=== PATIENT | female | born 1950 | race Caucasian/White ===

== ENCOUNTER → 2018-04-12 | Outpatient (CLI) | payer MEDICARE ==
--- NOTE | 2018-04-13 10:22 | MM ---
Reason for exam: screening (asymptomatic). Last mammogram was performed 1 year and 7 months ago. History: Patient is postmenopausal, has history of breast cancer at age 56, previous chest radiation therapy, and is nulliparous. Excisional biopsy of the left breast, August 14, 2007. Malignant left mammotome panel of the left breast, June 02, 2007. Lumpectomy of the left breast. Radiation therapy of the left breast. Took hormonal contraceptives for 5 years beginning at age 21. Taking antineoplastic for 4 years. Taking other hormone for 8 years. Physical Findings: A clinical breast exam by your physician is recommended on an annual basis and results should be correlated with mammographic findings. MG Screening Mammo w CAD Bilateral CC and MLO view(s) were taken. Prior study comparison: August 30, 2016, bilateral MG diagnostic mammo w CAD [facility]. April 30, 2015, bilateral MG diagnostic mammo w CAD [facility]. There are scattered fibroglandular densities. Benign appearing bilateral calcifications. No suspicious abnormality. Post therapy change on the left breast. ASSESSMENT: Benign, BI-RAD 2 RECOMMENDATION: Routine screening mammogram of both breasts in 1 year.
== END | disposition home or self-care (01) ==
LOC: RADMAMWWP 07:29
PROVIDERS: ATTEND Family Medicine
DX: Z12.31 Encounter for screening mammogram for malignant neoplasm of breast (principal)
CPT/HCPCS: 77067

== ENCOUNTER → 2018-11-09 | Outpatient (CLI) | payer MEDICARE | END | disposition home or self-care (01) | LOC: RADUSWWP 10:09 | PROVIDERS: ATTEND Family Medicine | DX: R25.2 Cramp and spasm (principal) | CPT/HCPCS: 93923 ==

== ENCOUNTER → 2019-08-10 | Outpatient (CLI) | payer MEDICARE ==
--- NOTE | 2019-08-10 13:50 | MM ---
Reason for exam: screening (asymptomatic). Last mammogram was performed 1 year and 4 months ago. History: Patient is postmenopausal, has history of breast cancer at age 56, previous chest radiation therapy, and is nulliparous. Excisional biopsy of the left breast, August 14, 2007. Malignant left mammotome panel of the left breast, June 02, 2007. Lumpectomy of the left breast. Radiation therapy of the left breast. Took hormonal contraceptives for 5 years beginning at age 21. Taking antineoplastic for 4 years. Taking other hormone for 8 years. Physical Findings: A clinical breast exam by your physician is recommended on an annual basis and results should be correlated with mammographic findings. MG Screening Mammo w CAD Bilateral CC and MLO view(s) were taken. Prior study comparison: April 12, 2018, bilateral MG screening mammo w CAD. August 30, 2016, bilateral MG diagnostic mammo w CAD [facility]. The breast tissue is heterogeneously dense. This may lower the sensitivity of mammography. Benign appearing bilateral calcifications. Post therapy change on the left. ASSESSMENT: Benign, BI-RAD 2 RECOMMENDATION: Routine screening mammogram of both breasts in 1 year.
== END | disposition home or self-care (01) ==
LOC: RADMAMWWP 09:02
PROVIDERS: ATTEND Family Medicine
DX: Z12.31 Encounter for screening mammogram for malignant neoplasm of breast (principal)
CPT/HCPCS: 77067

== ENCOUNTER → 2022-02-05 | Outpatient (CLI) | payer MEDICARE ==
--- NOTE | 2022-02-09 12:55 | MM ---
Reason for Exam: Screening (asymptomatic). Last mammogram was performed 2 year(s) and 6 month(s) ago. Patient History: Menarche at age 14. Patient has no children. Left ovary removed at age 51. Right ovary removed at age 51. Hysterectomy at age 51. Postmenopausal. Breast cancer, left, age 56. Previous chest radiation therapy. Hormonal Contraceptives for 5 years from age 21 until age 26. Lumpectomy on the Left side. 08/14/2007, Excisional Biopsy on the Left side. 06/02/2007, Malignant Core Biopsy on the left side. Radiation Therapy, left. Film Views: Bilateral CC views were taken. Bilateral MLO views were taken. Prior Study Comparison: 08/30/2016 Bilateral Diagnostic Mammogram, [facility]. 04/12/2018 Bilateral Screening Mammogram, [facility]. 08/10/2019 Bilateral Screening Mammogram, [facility]. Tissue Density: The breast tissue is heterogeneously dense. This may lower the sensitivity of mammography. Findings: Analyzed By CAD. No significant changes when compared with prior studies. Chronic nodularity in the right breast. Post surgical and post therapy changes in the left breast. Overall Assessment: Benign, BI-RAD 2 Management: Screening Mammogram of both breasts in 1 year.
== END | disposition home or self-care (01) ==
LOC: RADMAMWWP 09:55
PROVIDERS: ATTEND Family Medicine
DX: Z12.31 Encounter for screening mammogram for malignant neoplasm of breast (principal); Z78.0 Asymptomatic menopausal state; Z85.3 Personal history of malignant neoplasm of breast; Z92.3 Personal history of irradiation; Z90.721 Acquired absence of ovaries, unilateral; Z90.710 Acquired absence of both cervix and uterus
CPT/HCPCS: 77063; 77067

== ENCOUNTER → 2024-08-24 | Outpatient (CLI) | payer MEDICARE ==
[2024-08-24 10:03] LABS: INR 0.9 (<1.2); Partial Thromboplastin Time 24.2 sec (22.0-30.0); Prothrombin Time 10.2 sec (10.0-12.5)
[2024-08-24 15:35] LABS: Basophils # (A) 0.03 X 10*3/uL (0.00-0.10); Basophils % (A) 0.4 %; Eosinophils # (A) 0.12 X 10*3/uL (0.04-0.35); Eosinophils % (A) 1.7 %; HCT 44.4 % (37.2-46.3); HGB 14.2 g/dL (12.0-15.0); Lymphocytes # (A) 1.19 X 10*3/uL (0.90-5.00); MCH 29.2 pg (27.0-32.0); MCV 91.4 FL (80.0-97.0); Mean Platelet Volume 10.3 FL (9.5-12.2); Monocytes % (A) 7.1 %; NRBC Per 100 WBC 0 X 10*3/uL (0.00-0.01); Neutrophils # (A) 5.14 X 10*3/uL (1.80-7.70); Neutrophils % (A) 73.4 %; Platelet Count 283 X 10*3/uL (140-440); RBC 4.86 X 10*6/uL (4.10-5.20); RDW 13.9 % (11.5-14.5); WBC 7.01 X 10*3/uL (4.50-10.00)
[2024-08-24 15:40] LABS: BUN/Creat Ratio 17.33 Ratio (12.00-20.00); Blood Urea Nitrogen 10.4 mg/dL (9.0-27.0); Carbon Dioxide 25.6 mmol/L (21.6-31.8); Chloride 107 mmol/L (96-109); Glucose 108 mg/dL (70-110); Potassium 4.9 mmol/L (3.5-5.5); Sodium 143 mmol/L (135-145)
[2024-08-24 15:41] LABS: ALT 15 U/L (8-44); AST 18 U/L (13-35); Albumin 4.1 g/dL (3.8-4.9); Albumin/Globulin Ratio 1.52 Ratio (1.60-3.17); Alkaline Phosphatase 99 U/L (41-126); Calcium 9.8 mg/dL (8.7-10.3); Globulin 2.7 g/dL (1.6-3.3); Total Bilirubin 0.5 mg/dL (0.3-1.2); Total Protein 6.8 g/dL (6.2-8.2)
== END | disposition home or self-care (01) ==
LOC: LABWHC1 08:56
PROVIDERS: ATTEND Orthopaedic Surgery
DX: Z01.818 Encounter for other preprocedural examination (principal)
CPT/HCPCS: 36415; 80053; 83036; 85025; 85610; 85730; 86850; 86900; 86901; 87070

== ENCOUNTER 2024-09-03 09:16 | Day surgery (SDC) | payer MEDICARE ==
[~2024-09-03 09:16] MED LIST: TRANEXAMIC 1,000 MG/100ML-NACL 1,000 MG in SALINE 1 100ML.BAG IV PRN; TRANEXAMIC 1,000 MG/100ML-NACL 1,000 MG in SALINE 1 100ML.BAG IVPB PRN
[2024-09-03] MEDS: IV FLUID CONTINUATION 1,000 ML IV ONE (09:35)
[2024-09-03] MEDS: LACTATED RINGERS 1,000 ML IV SCH (10:14)
[2024-09-03] MEDS: DOCUSATE 100 MG CAP PO PRN (10:14)
[2024-09-03] MEDS: KETOROLAC 15 MG/ML 1 ML VIAL IVP PRN (10:15)
[2024-09-03] MEDS: ONDANSETRON 4 MG/2 ML VIAL IVP PRN (10:15)
[2024-09-03] MEDS: FAMOTIDINE 20 MG/2 ML VIAL IVP PRN (10:15)
[2024-09-03] MEDS: ACETAMINOPHEN TAB 500 MG TAB PO PRN (10:15)
[2024-09-03] MEDS: oxyCODONE ER 10 MG TAB.ER.12H PO PRN (10:15)
[2024-09-03] MEDS: SCOPOLAMINE 1 MG/72 HR PATCH TRANSDERM ONE (10:16)
[2024-09-03] MEDS: DEXAMETHASONE SOD PHOSPHATE 10 MG/ML 1 ML VIAL IV PRN (10:16)
[2024-09-03] MEDS: hydrALAZINE HCL 20 MG/ML 1 ML VIAL IVP STA (10:17)
[2024-09-03] MEDS: MIDAZOLAM 2 MG/2 ML VIAL IVP ONE (10:37)
[2024-09-03] MEDS ORDERED: NEOSTIGMINE 1 MG/ML 10 ML VIAL ONE (11:43)
[2024-09-03] MEDS ORDERED: TRANEXAMIC 1,000 MG/100ML-NACL PREMIX BAG ONE (11:43)
[2024-09-03] MEDS ORDERED: PROPOFOL 10 MG/ML 20 ML VIAL IV ONE (11:43)
[2024-09-03] MEDS ORDERED: fentaNYL (PF) 50 MCG/ML 2 ML AMP ONE (11:43)
[2024-09-03] MEDS ORDERED: SUCCINYLCHOLINE CHLORIDE 200 MG/10 ML VIAL IV ONE (11:43)
[2024-09-03] MEDS ORDERED: HYDROmorphone (PF) 1 MG/ML ONE (11:43)
[2024-09-03] MEDS ORDERED: GLYCOPYRROLATE 0.2 MG/ML 2 ML VIAL ONE (11:43)
[2024-09-03] MEDS ORDERED: ROCURONIUM 10 MG/ML (5 ML VIAL) IV ONE (11:43)
[2024-09-03] MEDS ORDERED: LIDOCAINE 1% INJ 10MG/ML (20 ML MDV) ONE (11:43)
[2024-09-03] MEDS ORDERED: DEXAMETHASONE SOD PHOSPHATE 4 MG/ML 1 ML VIAL ONE (11:43)
[2024-09-03] MEDS ORDERED: MIDAZOLAM 2 MG/2 ML VIAL ONE (11:43)
[2024-09-03] MEDS ORDERED: ROPIVACAINE 5 MG/ML 30 ML VIAL ONE (11:43)
[2024-09-03] MEDS: ROPIVACAINE/EPI/CLONIDINE/KET 50 ML SYRINGE MISCELLANE PRN (11:51)
[2024-09-03] MEDS: LACTATED RINGERS 1,000 ML IV ONE (13:30)
[2024-09-03] MEDS ORDERED: diazePAM 5 MG TAB PO PRN (13:35)
[2024-09-03] MEDS ORDERED: HYDROmorphone 0.5 MG/0.5 ML SYRINGE IVP PRN (13:35)
[2024-09-03] MEDS ORDERED: hydrOXYzine pamoate 25 MG CAP PO PRN (13:35)
[2024-09-03] MEDS ORDERED: MAGNESIUM HYDROXIDE 2,400 MG/30 ML CUP PO PRN (13:35)
[2024-09-03] MEDS ORDERED: NALOXONE 0.4 MG/ML 1 ML VIAL IV PRN (13:35)
[2024-09-03] MEDS ORDERED: HYDROcodone/APAP 5-325MG 1 EACH TAB PO PRN (13:35)
[2024-09-03] MEDS ORDERED: ONDANSETRON 4 MG/2 ML VIAL IVP PRN (13:35)
--- NOTE | 2024-09-03 13:35 | P.OP ---
Date of Procedure: 09/03/24 Preoperative Diagnosis: Severe right hip osteoarthritis Postoperative Diagnosis: Same Procedure(s) Performed: Right direct anterior total hip arthroplasty Implants: 1. [place] Trident II Acetabular Cup, Size #50 2. Nicolas Insignia Size # 4 Femoral Stem, High Offset 3. Dual Mobility OD 38 mm, ID 28 mm, -4 mm neck Anesthesia: GETA, regional Surgeon: Lionel Ace Directional Bore Operator #1: Celso Clark Estimated Blood Loss (ml): 300 IV fluids (ml): 800 Pathology: none sent Condition: stable Disposition: PACU Indications for Procedure: the patient is a very pleasant 73-year-old female who I been seeing for severe right hip pain. She had x-rays and an MRI both of which showed severe hip arthritis. She also had issues for her back. She previously underwent a diagnostic right hip injection and had complete relief of her hip and groin pain. Her pain returned and she requested proceeding with a total hip replacement. I had a long discussion with the patient in the office on the potential risks and complications of an elective total hip replacement through a direct anterior approach. Risks discussed include, but are certainly not limited to, risks from anesthesia, superficial infection requiring local wound care or antibiotics, deep matt-prosthetic joint infection and the treatment required to eradicate infection, intraoperative fracture, postoperative periprosthetic fracture, damage to local blood vessels or nerves particularly the lateral femoral cutaneous nerve, delayed wound healing requiring local wound care or possibly surgical debridement, hip dislocation, leg length discrepancy, soft tissue irritation around the total hip implant such as iliopsoas tendinitis or trochanteric bursitis, wear and osteolysis from the implants, squeaking or audible noises, groin pain, thigh pain, heterotopic ossification, stiffness, aseptic loosening of the implants, dissatisfaction with surgical outcome, need for revision surgery, DVT, PE, swelling of the operative extremity, acute carlton nary event, stroke, failure to thrive, and possibly loss of life or limb. The patient understands that while these are the most common complications after an elective hip replacement there are certainly other less common complications possible. They were given ample time to ask questions regarding the potential complications of a hip replacement. Following our discussion the patient provided their verbal and written consent to go forward with an elective total hip replacement. Operative Findings: severe right hip arthritis with complete loss of cartilage from the femoral head and acetabulum Description of Procedure: The patient was identified in the preoperative holding area and the correct hip was marked with my initials. I reviewed the procedure and consent with the patient. All of their questions were answered. The patient was then brought back into the operating room by anesthesia. While on the [facility] anesthesia was administered by the anesthesia team. Preoperative antibiotics and tranexamic acid were also given. After the patient was under anesthesia I examined their ankles to determine their preoperative leg length discrepancy. The skin over the anterior aspect of the hip was shaved to remove hair over the site of planned incision. Both feet and ankles were padded with webril and boots for the [place] were applied. The patient was then carefully transferred onto the [place] table. A perineal post was immediately placed. The arms were placed on arm holders and were well-padded. Both boots were secured to the spars on the [place] table. The patient was positioned so that the pelvis was centered over the post. Nonsterile drapes were applied. A timeout was performed identifying the correct patient, operative extremity, and procedure. At this point fluoroscopy was brought in to take preoperative images of the pelvis and operative hip. Using the standing AP pelvis from the office as a template, a comparable image was obtained with fluoroscopy. A metallic bar was used to create a bi-ischial line for use as a reference to leg length adjustments during the procedure. Global offset was also measured on both the operative and nonoperative leg. Fluoroscopy was then brought out and a pre-scrub using a chlorhexidine scrub brush was performed. The operative limb was then prepped and draped in the harley bueno sterile fashion. An anterior longitudinal incision was made lateral and distal to the ASIS. The skin and subcutaneous tissues were incised sharply. The underlying tensor fascia was identified and incised in its midportion. The fascia was dissected free from the underlying muscle and the muscle belly was retracted. A blunt tipped cobra retractor was placed over the superior neck under the muscle fibers of the gluteus minimus. The deep enveloping fascia of the tensor was incised. The anterior leash of vessels were then identified and cauterized. The fascia between the rectus and the capsule was then incised and the pre-capsular fat was excised. A second Cobra was placed inferior to the neck. The interval between the rectus and iliocapsularis and the hip capsule was developed and a retractor was placed carefully over the anterior rim of the acetabulum. A T-shaped anterior capsulotomy was performed. The superior capsular leaflet was left in place in the inferior capsular flap was excised. The Cobra retractors were placed intracapsularly. We then made a femoral neck osteotomy according to preoperative and intraoperative templating and confirmed the level of the osteot magalie using fluoroscopic imaging. The femoral head was removed, passed off to the back table, and sized. The superior capsular flap was excised. Retractors were placed circumferentially exposing the acetabulum. We then circumferentially debrided the acetabulum free of labrum and osteophytes. The pulvinar was removed to fully visualize the cotyloid fossa. We then sequentially reamed to achieve peripheral fit and excellent bleeding subchondral bone. The socket was thoroughly irrigated. The acetabular component was impacted into the appropriate position using fluoroscopy to guide version, inclination, and depth of insertion taking care to have a comparable image of the AP pelvis to the standing image taken in the office. An excellent press-fit was achieved and final position was confirmed using fluoroscopy. The press fit was augmented with bony cancellus dome screws. The liner was then impacted into the socket. Attention was then turned to the femur. The remnant dorsal lateral capsule was excised. The short external rotators were visible and protected. A bone hook was used to confirm appropriate translation of the trochanter away from the acetabulum. The leg was then extended and adducted and the bone hook was used to elevate the femur for broaching. A box osteotome and blunt tipped canal sound was then utilized to gain access to the femoral canal. We then sequenti ally broached the femur in appropriate anteversion until excellent torsional stability was achieved. The neck cut was brought flush to the trial broach with a calcar planar. A trial neck and head were then placed onto the broach and the hip was atraumatically reduced under direct visualization. External rotation to 90 was performed to assess stability. Fluoroscopy was brought in. An AP and l ateral fluoroscopic image of the proximal femur was obtained to assess position and fill of the trial broach. An AP of the pelvis was then obtained and matched to the preoperative image taken. A bi-ischial bar was then placed and measurements were taken to assess changes in length and offset. The hip was then carefully dislocated, the proximal femur was exposed, and the trial implants were removed. The wound and proximal femur was thoroughly irrigated using sterile saline and pulsatile lavage. The final femoral implant was dispensed and gently tapped into place generating an excellent press-fit. The trunnion was cleansed and the final head was tapped into place to engage the Davis taper. The acetabulum was irrigated and visualized to be free of debris. The hip was carefully reduced. Stability was checked clinically with external rotation to 90 and there was no evidence of instability. Final fluoroscopic images were taken. The wound was then thoroughly irrigated and soaked with a dilute Betadine rinse for 3 minutes. 3 L of sterile saline was irrigated through the wound using pulsatile lavage. Local anesthetic cocktail was injected into the soft tissues around the surgical field. The wound was then closed in layers. A sterile dressing was placed over the surgical incision. The drapes were taken down and the patient was carefully transferred off of the [place] table. Following removal of the boots the leg lengths felt acceptable. The patient was then taken to recovery room having tolerated the procedure well. Celso Kelley was required as a skilled human resources benefits assistant due to the complexity of surgery for patient positioning, draping, exposure, retraction, closure of wound, and application of dressing. PLAN: The patient can weight-bear as tolerated on the operative extremity. 2 doses of postoperative antibiotics. DVT prophylaxis with aspirin 81 mg twice a day based on preoperative risk stratification. Physical therapy for gait training.
[2024-09-03] MEDS: HYDROmorphone 0.5 MG/0.5 ML SYRINGE IVP PRN ×2 (14:12→21:51)
[2024-09-03] MEDS: DEXAMETHASONE SOD PHOSPHATE 4 MG/ML 1 ML VIAL IV ONE (14:35)
--- NOTE | 2024-09-03 15:19 | XR ---
Fluoroscopy INDICATION: Pain FINDINGS: Fluoroscopy time: 31.8 seconds. Total dose area product (DAP) in uGy*m?, mGy*cm? (or similar): 1.9391 Images obtained: 6. IMPRESSION: 1. Documentation of fluoroscopy. [facility], , 09/03/2024 3:17 PM
--- NOTE | 2024-09-03 15:45 | FL ---
Fluoroscopy INDICATION: Pain FINDINGS: Fluoroscopy time: 31.8 seconds. Total dose area product (DAP) in uGy*m?, mGy*cm? (or similar): 1.9391 Images obtained: 2. IMPRESSION: 1. Documentation of fluoroscopy. [facility], , 09/03/2024 3:43 PM
[2024-09-03] MEDS: SODIUM CHLORIDE 0.9% 1,000 ML IV SCH (17:19)
[2024-09-03] MEDS: HYDROcodone/APAP 10-325MG 1 EACH TAB PO PRN (17:39)
--- NOTE | 2024-09-03 19:30 | P.ANPRN ---
Procedure Note - Anesthesia - Nerve Block Performed Right Regis Single Time Out Performed: Yes Date of Procedure: 09/03/24 Procedure Start Time: 10:36 Procedure Stop Time: 10:41 Location of Patient: PreOp Indication: Acute Post-Operative Pain, Requested by Surgeon Sedation Type: Sedate with meaningful contact maintained Preparation: Sterile Prep Position: Supine Needle Types: Pajunk Needle Gauge: 21 Ultrasound used to visualize needle placement: Yes Ultrasound used to observe medication spread: Yes Blood Aspirated: No Pain Paresthesia on Injection Noted: No Resistance on Injection: Normal Image Stored and Saved: Yes Events: Uneventful and Well Tolerated (ropi .5% 20cc plus dexamethasone 20mg)
[2024-09-03] MEDS ORDERED: IBUPROFEN 200 MG TAB PO PRN (21:10)
--- NOTE | 2024-09-03 21:13 | P.CONS ---
History of Present Illness - Reason for Consult Consult date: 09/03/24 Medical management - Chief Complaint Medical management - History of Present Illness Patient is a 73-year-old female with past medical history of severe right hip osteoarthritis, hypertension, hyperlipidemia, breast cancer at age 56 (in remission) status post lumpectomy of the left breast in 2006, and GERD is seen in the postsurgical kyle for medical management status post right direct anterior total hip arthroplasty on 09/03/2024. Per operative note, patient has a history of severe right hip pain. Previous x-rays and MRI showed signs of severe hip arthritis. Patient previously underwent a diagnostic right hip injection and had temporary relief of her hip and groin pain, however the pain returned and the patient requested to proceed with total hip replacement. Estimated blood loss of 300 mL was reported during the surgery. There were no intraoperative complications reported. Patient is currently reporting an 8 out of 10 pain in her right leg from the surgery. She also reported slight numbness. Denied tingling or weakness in the lower extremity bilaterally. Patient also denied fever, chills, chest pain, shortness of breath, nausea, vomiting, belly pain, urinary or fecal incontinence, diarrhea, constipation. ED documentation reviewed. In the ED patient was treated with Vitals on admission temperature 97.4, pulse rate 85, respiratory rate 17, blood pressure 171/72, O2 saturation 97% on room air Hip x-ray shows documentation of fluoroscopy. Review of systems: Pertinent positives and negatives as discussed in HPI, a complete review of systems was performed and all other systems are negative. PMH: severe right hip osteoarthritis, hypertension, hyperlipidemia, breast cancer at age 56 (in remission) status post lumpectomy of the left breast in 2006, and GERD PSH: Hysterectomy, bilateral feet surgery, left breast lumpectomy and left shoulder open reduction internal fixation FMH: Father has a history of coronary artery disease, sister has colon cancer Allergies: No known drug allergies Social history: Tobacco: Former smoker, quit smoking in the 80s used to smoke 1 pack a day Alcohol: Occasional alcohol use Recreational drugs: No recreational drug use Travel: No recent travel history Sick contacts: No recent sick contacts Physical examination: Vital signs reviewed General: nontoxic, no distress, appears at stated age, well-appearing Derm: warm, dry, intact Head: atraumatic, normocephalic, symmetric Eyes: EOMI, anicteric sclera Mouth: no lip lesion, mucus membranes moist Cardiovascular: S1 S2 reg, no murmur Lungs: CTA bilateral, no rhonchi, no rales, no accessory muscle use Abdominal: soft, non-tender to palpation Extremities: No cyanosis, clubbing, or pedal edema. Wound dressing noted in the proximal right lower extremity with no signs of erythema, purulent discharge, or bleeding. Neuro: Alert, Oriented, Gross neurological examination did not reveal any focal deficits. Intact upper and lower extremity muscle strength 5 out of 5 bilaterally. Slightly reduced sensation in the proximal right lower extremity compared to the left. Intact sensation in the upper extremity bilaterally and distal lower extremity bilaterally. Cranial nerves II to XII grossly intact. Psych: appropriate affect Assessment/Plan: Patient is a 73-year-old female with past medical history of severe right hip osteoarthritis, hypertension, hyperlipidemia, breast cancer at age 56 (in remission) status post lumpectomy of the left breast in 2006, and indigestion is seen in the postsurgical kyle for medical management status post right direct anterior total hip arthroplasty on 09/03/2024. Patient is seen for consultation for medical management status post right total hip arthroplasty on 09/03/2024. Active: #. Hypertension Continue benazepril 10 mg #. Hyperlipidemia Continue atorvastatin 10 mg #. GERD Continue Pepcid #. Vitamin D deficiency Continue cholecalciferol 25 mcg #. Status post right direct anterior total hip arthroplasty on 09/03/2024 Defer pain management and DVT prophylaxis to orthopedic surgery Hold home ibuprofen CODE STATUS: Full code Discussed with: Dr. Rucker I have seen and evaluated the patient today. I Discussed the case with the resident and agree with the resident's findings I edited the assessment and plan as necessary as documented in the resident's note. Past Medical History Past Medical History: Cancer, GERD/Reflux, Hyperlipidemia, Hypertension, Osteoarthritis (OA), Skin Disorder Additional Past Medical History / Comment(s): rosacea ,breast cancer 2008. rt hip and back pain History of Any Multi-Drug Resistant Organisms: None Reported Past Surgical History: Breast Surgery, Hysterectomy, Joint Replacement, Ort hopedic Surgery Additional Past Surgical History / Comment(s): lumpectomy left breast and bilat foot surgery, TRH 09/03/24 Past Anesthesia/Blood Transfusion Reactions: No Reported Reaction Smoking Status: Former smoker - Past Family History Sister(s) Family Medical History: Cancer Additional Family Medical History / Comment(s): colon Mother Family Medical History: No Reported History ( at age 83 with cardiac disease) Additional Family Medical History / Comment(s): arthritis- Father Family Medical History: Coronary Artery Disease (CAD) Medications and Allergies Home Medications Medication Instructions Recorded Confirmed Type Atorvastatin [Lipitor] 10 mg PO DAILY 08/28/14 09/03/24 History Brimonidine Tartrate [Mirvaso] 1 cream TOPICAL DAILY 08/28/14 09/03/24 History Ibuprofen [Advil] 200 mg PO Q8HR PRN 08/28/14 09/03/24 History Multivitamin/Iron/Folic Acid 1 each PO DAILY 08/28/14 09/03/24 History [Centrum Complete Multivit Tab] Benazepril HCl 10 mg PO DAILY 08/28/24 09/03/24 History Cholecalciferol [Vitamin D3 (25 25 mcg PO DAILY 08/28/24 09/03/24 History Mcg = 1000 Iu)] Famotidine/Ca Carb/Mag Hydrox 1 tab PO DAILY 08/28/24 09/03/24 History [Pepcid Complete Tablet Chew] Mupirocin 2% Oint [Bactroban 2% 1 applic NASAL DIRECTED 08/28/24 09/03/24 History Oint] Allergies Allergy/AdvReac Type Severity Reaction Status Date / Time No Known Allergies Allergy Verified 09/03/24 17:30 Physical Exam Vitals: Vital Signs Temp Pulse Pulse Resp BP Pulse Ox 09/03/24 19:53 97.4 F L 85 17 171/72 97 09/03/24 16:45 86 16 131/60 97 09/03/24 16:30 86 16 141/64 96 09/03/24 16:19 75 16 130/58 96 09/03/24 16:02 79 16 134/61 97 09/03/24 15:45 64 16 136/62 97 09/03/24 15:30 71 16 134/61 97 09/03/24 15:15 90 16 138/65 97 09/03/24 15:02 85 18 134/62 97 09/03/24 14:46 77 18 132/60 97 09/03/24 14:32 84 18 126/63 97 09/03/24 14:17 90 18 140/65 97 09/03/24 14:00 96 18 157/69 97 09/03/24 13:53 97.9 F 104 H 18 187/71 97 09/03/24 10:47 80 16 146/67 99 09/03/24 09:51 98.9 F 65 16 191/77 98 Intake and Output 09/03/24 09/03/24 09/03/24 06:59 14:59 22:59 Intake Total 1050 700 Output Total 300 Balance 750 700 Intake: IV 1050 700 Output: Estimated Blood Loss 300 Other: Weight 96.8 kg 96.8 kg
[2024-09-03] MEDS: ASPIRIN 81 MG PO SCH (21:49)
[2024-09-03] MEDS: SENNOSIDES-DOCUSATE SODIUM 1 EACH TAB PO SCH (21:50)
[2024-09-04] MEDS: MUPIROCIN 2% OINT 22 GM TUBE NASAL SCH (01:42)
[2024-09-04] MEDS: BRIMONIDINE TARTRATE TOPICAL SCH (07:50)
[2024-09-04] MEDS: CHOLECALCIFEROL 25 MCG (1000 IU) TABLET PO SCH (07:53)
[2024-09-04] MEDS: ATORVASTATIN 10 MG TAB PO SCH (07:53)
[2024-09-04] MEDS: lisinopriL 10 MG TAB PO SCH (07:53)
[2024-09-04] MEDS: MULTIVITAMINS, THERA 1 EACH TAB PO SCH (07:53)
[2024-09-04] MEDS: FAMOTIDINE 20 MG TAB PO SCH (07:54)
--- NOTE | 2024-09-04 07:58 | P.PN ---
Subjective Progress Note Date: 09/04/24 No acute events overnight per patient. Patient is doing well this morning. The pain in their right hip is mild. Their pain has been controlled with oral pain medication. They have walked to the bathroom with a walker and assistance. They deny chest pain or shortness of breath. Objective - Vital Signs Vital signs: Vital Signs Temp 98.3 F 09/04/24 02:00 Pulse 86 09/04/24 02:00 Resp 17 09/04/24 02:00 BP 166/73 09/04/24 02:00 Pulse Ox 97 09/04/24 02:00 FiO2 Intake & Output 09/03/24 09/04/24 09/04/24 18:59 06:59 18:59 Intake Total 1750 Output Total 300 Balance 1450 Weight 96.8 kg Intake: IV 1750 Output: Estimated Blood Loss 300 Other: # Voids 1 - Exam Patient was examined at bedside. Patient is resting comfortably in bed. No apparent distress. They are awake, alert and able to answer questions. On inspection the surgical hip dressing is intact, there is no drainage or strikethrough. The proximal end of the dressing was coming loose, and it was reinforced with a Tegaderm. The skin surrounding the dressing is free of erythema but there is some ecchymosis. There is mild swelling in the operative thigh. Operative femoral nerve function is intact. The operative calf is soft to compression. The patient is able to actively plantarflex and dorsiflex their operative ankle and toes. Their operative foot appears well perfused. Assessment and Plan Assessment: Postop day #1 status post right direct anterior total hip arthroplasty by Dr. Ace for right hip osteoarthritis Right hip pain Plan: Weight-bear as tolerated on the operative extremity. Use a walker to ambulate. Leave surgical dressing in place. Physical therapy for gait training and mobilization. Internal medicine for perioperative medical management. Disposition: If patient passes physical therapy they would like to be discharged home with home health care today.
[2024-09-04 08:04] VITALS: BP 162/82; PULSE 91; TEMP 98
--- NOTE | 2024-09-04 08:12 | P.DS ---
Providers Attending physician: Lionel Ace Consults: 09/03/24 13:35 Consult Physician Routine Consulting Provider: Guille Mcgrath Consult Reason/Comments: post op medical management Do you want consulting provider notified?: Yes Primary care physician: Fidencio Timothy [facility] Course: Patient is a 73-year-old female who failed conservative management of severe right hip osteoarthritis. On 09/03/2024 patient presented to preop for scheduled right total hip arthroplasty with Dr. Ace. Patient tolerated the procedure well. Patient was transferred to the orthopedic floor. Patient had no acute events overnight. Patient will work with physical therapy and if passes physical therapy patient would like to discharge home with home health care later today. Patient's pain has been controlled with oral pain medication. Patient will have anticoagulation with aspirin 81 mg twice daily for 30 days. Assessment: Status post right total hip arthroplasty Right hip osteoarthritis Right hip pain Plan - Discharge Summary Discharge Rx Participant: Yes New Discharge Prescriptions: New Aspirin 81 mg PO BID #60 tab HYDROcodone/APAP 5-325MG [Providence 5] 1 - 2 each PO Q6HR PRN #48 tab PRN Reason: Pain Sennosides-Docusate Sodium [Senokot-S] 1 tab PO BID PRN #60 tablet PRN Reason: Constipation Diclofenac Sodium [Voltaren] 75 mg PO BID #60 tab Omeprazole 20 mg PO DAILY #30 tab Ondansetron [Zofran] 4 mg PO Q6HR PRN #30 tab PRN Reason: Nausea No Action Ibuprofen [Advil] 200 mg PO Q8HR PRN PRN Reason: Pain Atorvastatin [Lipitor] 10 mg PO DAILY Multivitamin/Iron/Folic Acid [Centrum Complete Multivit Tab] 1 each PO DAILY Brimonidine Tartrate [Mirvaso] 1 cream TOPICAL DAILY Cholecalciferol [Vitamin D3 (25 Mcg = 1000 Iu)] 25 mcg PO DAILY Benazepril HCl 10 mg PO DAILY Mupirocin 2% Oint [Bactroban 2% Oint] 1 applic NASAL DIRECTED Famotidine/Ca Carb/Mag Hydrox [Pepcid Complete Tablet Chew] 1 tab PO DAILY Discharge Medication List Atorvastatin [Lipitor] 10 mg PO DAILY 08/28/14 [History] Brimonidine Tartrate [Mirvaso] 1 cream TOPICAL DAILY 08/28/14 [History] Ibuprofen [Advil] 200 mg PO Q8HR PRN 08/28/14 [History] Multivitamin/Iron/Folic Acid [Centrum Complete Multivit Tab] 1 each PO DAILY 08/28/14 [History] Benazepril HCl 10 mg PO DAILY 08/28/24 [History] Cholecalciferol [Vitamin D3 (25 Mcg = 1000 Iu)] 25 mcg PO DAILY 08/28/24 [History] Famotidine/Ca Carb/Mag Hydrox [Pepcid Complete Tablet Chew] 1 tab PO DAILY 08/28/24 [History] Mupirocin 2% Oint [Bactroban 2% Oint] 1 applic NASAL DIRECTED 08/28/24 [History] Aspirin 81 mg PO BID #60 tab 09/04/24 [Rx] Diclofenac Sodium [Voltaren] 75 mg PO BID #60 tab 09/04/24 [Rx] HYDROcodone/APAP 5-325MG [Providence 5] 1 - 2 each PO Q6HR PRN #48 tab 09/04/24 [Rx] Omeprazole 20 mg PO DAILY #30 tab 09/04/24 [Rx] Ondansetron [Zofran] 4 mg PO Q6HR PRN #30 tab 09/04/24 [Rx] Sennosides-Docusate Sodium [Senokot-S] 1 tab PO BID PRN #60 tablet 09/04/24 [Rx] Follow up Appointment(s)/Referral(s): Lionel Ace MD [Medical Doctor] - 2 Weeks Activity/Diet/Wound Care/Special Instructions: 1. Weight-bear as tolerated on your operative extremity unless instructed otherwise. Use a walker or other assistive device to ambulate. 2. Leave surgical dressing in place. If your dressing becomes saturated with blood, there is drainage, or the dressing becomes loose please contact the office. 3. It is okay to shower with your surgical dressing, but do not submerge in water (no hot tubs, bath's, swimming etc.) 4. Take your blood clot prevention medication as prescribed (aspirin, Eliquis, Xarelto, and Plavix are commonly prescribed medications for blood clot prevention) 5. While taking Providence or Percocet for pain take a stool softener (Ex: Colace) and drink lots of water. 6. Keep all follow-up appointments as scheduled. You will usually be seen in 1-2 weeks following surgery. 7. Please contact the office with any questions or concerns [phone] Discharge Disposition: HOME WITH HOME HEALTH SERVICES
[2024-09-04 08:52] LABS: Basophils # (A) 0.03 X 10*3/uL (0.00-0.10); Basophils % (A) 0.2 %; Eosinophils # (A) 0 X 10*3/uL (0.04-0.35); Eosinophils % (A) 0 %; HCT 40.5 % (37.2-46.3); HGB 12.5 g/dL (12.0-15.0); Lymphocytes # (A) 0.71 X 10*3/uL (0.90-5.00); Lymphocytes % (A) 4.8 %; MCH 29.6 pg (27.0-32.0); MCHC 30.9 g/dL (32.0-37.0); Mean Platelet Volume 11.1 FL (9.5-12.2); Monocytes # (A) 1.06 X 10*3/uL (0.20-1.00); Monocytes % (A) 7.1 %; NRBC Per 100 WBC 0 X 10*3/uL (0.00-0.01); Neutrophils # (A) 13.06 X 10*3/uL (1.80-7.70); Neutrophils % (A) 87.4 %; Platelet Count 272 X 10*3/uL (140-440); RBC 4.22 X 10*6/uL (4.10-5.20); RDW 13.6 % (11.5-14.5); WBC 14.94 X 10*3/uL (4.50-10.00)
[2024-09-04] MEDS ORDERED: IRON PO SCH (09:00)
[2024-09-04] MEDS ORDERED: [UNRECOGNIZED DRUG - OTHER] PO SCH (09:00)
[2024-09-04] MEDS ORDERED: FOLIC ACID PO SCH (09:00)
[2024-09-04] MEDS ORDERED: MULTIVITAMIN PO SCH (09:00)
[2024-09-04] MEDS ORDERED: NON FORMULARY DRUG (Famotidine/Ca Carb/Mag Hydrox [Pepcid Complete Tablet Chew] 1 EACH Tab PO SCH (09:00)
[2024-09-04 09:34] VITALS: RESP 18
--- NOTE | 2024-09-04 11:42 | P.PN ---
Subjective Progress Note Date: 09/04/24 Patient is a 73-year-old female with past medical history of severe right hip osteoarthritis, hypertension, hyperlipidemia, breast cancer at age 56 (in remission) status post lumpectomy of the left breast in 2006, and GERD is seen in the postsurgical kyle for medical management status post right direct ant erior total hip arthroplasty on 09/03/2024. Per operative note, patient has a history of severe right hip pain. Previous x-rays and MRI showed signs of severe hip arthritis. Patient previously underwent a diagnostic right hip injection and had temporary relief of her hip and groin pain, however the pain returned and the patient requested to proceed with total hip replacement. Estimated blood loss of 300 mL was reported during the surgery. There were no intraoperative complications reported. Patient is currently reporting an 8 out of 10 pain in her right leg from the surgery. She also reported slight numbness. Denied tingling or weakness in the lower extremity bilaterally. Patient also denied fever, chills, chest pain, shortness of breath, nausea, vomiting, belly pain, urinary or fecal incontinence, diarrhea, constipation. Vitals on admission temperature 97.4, pulse rate 85, respiratory rate 17, blood pressure 171/72, O2 saturation 97% on room air Hip x-ray shows documentation of fluoroscopy. 09/04/2024 patient seen and examined at bedside. No acute events overnight. Patient reported to have urinated, able to pass gas, and ambulate. She has not had a bowel movement. No new complaints overnight. WBC 14.94 neutrophil dominant at 13.06 Review of systems: Pertinent positives and negatives as discussed in HPI, a complete review of systems was performed and all other systems are negative. Pertinent imaging and labs reviewed. Physical examination: Vital signs reviewed General: non toxic, no distress, appears at stated age, on room air Derm: no unusual rashes/lesions, warm Head: atraumatic, normocephalic, symmetric Eyes: EOMI, anicteric sclera, pupils equal round reactive to light ENT: Nose and ears atraumatic Neck: No cervical lymphadenopathy, trachea midline, supple Mouth: no lip lesion, mucus membranes moist Cardiovascular: S1S2 reg, no murmur Lungs: CTA bilateral, no rhonchi, no rales, no accessory muscle use Abdominal: soft, nontender to palpation, no guarding Ext: muscle strength 5 out of 5 in all 4 extremities grossly, no gross muscle atrophy, no contractures, positive dorsalis pedis pulse bilateral, no edema, right hip area has dressing that is clean and dry surrounding skin is negative for erythema or swelling Neuro: CN II-XI grossly intact, no gross focal neuro deficits Psych: Alert and oriented x3, appropriate affect and mood Assessment/Plan: Patient is a 73-year-old female with past medical history of severe right hip osteoarthritis, hypertension, hyperlipidemia, breast cancer at age 56 (in remission) status post lumpectomy of the left breast in 2006, and indigestion is seen in the postsurgical kyle for medical management status post right direct anterior total hip arthroplasty on 09/03/2024. Patient is seen for consultation for medical management status post right total hip arthroplasty on 09/03/2024. Active: #. Hypertension Continue benazepril 10 mg #. Hyperlipidemia Continue atorvastatin 10 mg #. GERD Continue Pepcid #. Vitamin D deficiency Continue cholecalciferol 25 mcg #. Status post right direct anterior total hip arthroplasty on 09/03/2024 Defer pain management and DVT prophylaxis to orthopedic surgery Hold home ibuprofen F: Oral intake E: None N: Regular diet A: Requires support. Need to be evaluated by PT DVT prophylaxis: Per surgical team Disposition: Patient is stable from medical standpoint Yudy Alarcon MD PGY-1/Clinical Rn Liaison Dictation was produced using [employer] dictation software. please excuse any grammatical, word or spelling errors. I saw and evaluated the patient during the wilson and critical portions of this encounter, and discussed the case in detail with the resident author of this note, I agree with the Assessment and Plan, and my changes, if any, are noted below. Objective - Vital Signs Vital signs: Vital Signs Temp 98.3 F 09/04/24 02:00 Pulse 86 09/04/24 02:00 Resp 17 09/04/24 02:00 BP 166/73 09/04/24 02:00 Pulse Ox 97 09/04/24 02:00 FiO2 Intake & Output 09/03/24 09/03/24 09/04/24 06:59 18:59 06:59 Intake Total 1750 Output Total 300 Balance 1450 Weight 96.8 kg Intake: IV 1750 Output: Estimated Blood Loss 300 Other: # Voids 1 - Labs CBC & Chem 7: 09/04/24 02:51
== END 2024-09-04 11:45 | disposition home health service (06) ==
LOC: OR 09:16 → 4SSUR 14:27 → OR 09-04 11:45
PROVIDERS: ATTEND Orthopaedic Surgery
DX: M16.11 Unilateral primary osteoarthritis, right hip (principal); M70.61 Trochanteric bursitis, right hip; R10.30 Lower abdominal pain, unspecified; I10 Essential (primary) hypertension; E78.5 Hyperlipidemia, unspecified; Z82.61 Family history of arthritis; Z01.818 Encounter for other preprocedural examination
CPT/HCPCS: 97161; 64999; 85025; 73501; 27130; C1776; J2250; J0360; J1100; J0690 ×2; J2405; J3490; J1885; J1171 ×2

== ENCOUNTER → 2024-09-11 | Outpatient (CLI) | payer MEDICARE ==
--- NOTE | 2024-09-11 15:31 | US ---
EXAMINATION TYPE: US venous doppler duplex LE RT DATE OF EXAM: 09/11/2024 3:12 PM COMPARISON: NONE CLINICAL INDICATION: Female, 73 years old with history of R22.41 SWELLING MASS LUMP; Recent left hip replacement, left leg swelling, Pain TECHNIQUE: The lower extremity deep venous system is examined utilizing real time linear array sonog yarelis with graded compression, color doppler sonography, and spectral doppler. SIDE PERFORMED: Left FINDINGS: VESSELS IMAGED: Common Femoral Vein Deep Femoral Vein Greater Saphenous Vein * Femoral Vein Popliteal Vein Small Saphenous Vein * Proximal Calf Veins (* superficial vessels) Left Leg: Appears negative for DVT IMPRESSION: No ultrasound evidence for deep venous thrombosis. [facility], , 09/11/2024 3:29 PM
== END | disposition home or self-care (01) ==
LOC: RADUSWWP 14:54
PROVIDERS: ATTEND Family Medicine
DX: R22.41 Localized swelling, mass and lump, right lower limb (principal); Z96.642 Presence of left artificial hip joint